=== PATIENT | male | born 1990 | race Caucasian/White ===

== ENCOUNTER 2016-11-10 10:10 | Emergency (ER) | payer OTHER ==
[2016-11-10 10:28] VITALS: BP 144/86
[2016-11-10] MEDS ORDERED: Lidocaine 2% W/EPI 1:100,000* 20 ML MDV ONE (10:49)
[2016-11-10] MEDS ORDERED: Ibuprofen TAB* 800 MG PO ONE (11:18)
[2016-11-10] MEDS ORDERED: Ibuprofen TAB* 400 MG ONE (11:20)
--- NOTE | 2016-11-10 11:33 | UC ---
Bite Injury/Animal HPI - HPI Summary HPI Summary: DOG BITE TO HIS LIPS AND RIGHT CALF ARE SINCE THIS MORNING . + LACERATION ON THE RIGHT LOWER LIP AND A SMALL ABRASION LEFT UPPER LIP , AND ECCHYMOSIS OF THE RIGHT CALF AREA FROM THE BITE - History of Current Complaint Chief Complaint: UCBiteInjury Stated Complaint: DOG BITE,WORK INJURY Time Seen by Provider: 11/10/16 10:22 Pain Intensity: 6 Pain Scale Used: 0-10 Numeric Onset/Duration: Sudden Onset, Lasting Hours - 2 HRS AGO, Still Present Type of Bite: Animal - DOG Character: Abrasion/Laceration - UPPER AND LOWER LIP Aggravating Factor(s): Exertion Alleviating Factor(s): Nothing Associated Signs And Symptoms: Positive: Swelling - RIGHT LOWER LIP , RIGHT CALF. Negative: Fever, Erythema, Drainage, Lymphadenopathy, Numbness/Tingling, Limited ROM Hx of Bite: Provoked by: - BY BEING IN THE PROPERTY Animal Available for Observation: Yes Animal Control Notified: Yes - Allergies/Home Medications Allergies/Adverse Reactions: Allergies Allergy/AdvReac Type Severity Reaction Status Date / Time No Known Allergies Allergy Verified 11/10/16 10:24 PMH/Surg Hx/FS Hx/Imm Hx Previously Healthy: Yes - Surgical History Surgical History: None - Family History Known Family History: Negative: Diabetes - Social History Alcohol Use: Occasionally Substance Use Type: None Smoking Status (MU): Never Smoked Tobacco - Immunization History Most Recent Tetanus Shot: with the last five years Review of Systems Constitutional: Negative Skin: Other - LACERATION LIPS ENT: Negative Respiratory: Negative Cardiovascular: Negative Gastrointestinal: Negative Genitourinary: Negative All Other Systems Reviewed And Are Negative: Yes Physical Exam Triage Information Reviewed: Yes Appearance: Well-Appearing, No Pain Distress, Well-Nourished Vital Signs: Initial Vital Signs Temp 98.5 F 11/10/16 10:18 Pulse 90 11/10/16 10:18 Resp 16 11/10/16 10:18 BP 144/86 11/10/16 10:18 Pulse Ox 100 11/10/16 10:18 Vital Signs Reviewed: Yes Eyes: Positive: Conjunctiva Clear ENT: Positive: Normal ENT inspection, Hearing grossly normal, Pharynx normal Neck exam: Normal Neck: Positive: Supple, Nontender, No Lymphadenopathy Respiratory: Positive: Chest non-tender, Lungs clear, Normal breath sounds Cardiovascular: Positive: RRR, No Murmur, Pulses Normal Abdominal Exam: Normal Abdomen Description: Positive: Nontender, Soft. Negative: Distended, Guarding Bowel Sounds: Positive: Present Musculoskeletal Exam: Normal Musculoskeletal: Positive: Strength Intact, ROM Intact, No Edema Neurological: Positive: Alert, Muscle Tone Normal Psychological Exam: Normal Skin Exam: Other - RIGHT CALF : + DOG BITE, + ECCHYMOSIS, SWELLING AND TENDERNESS Skin: Positive: Other - LACERATION RIGHT LOWER LIP : 1 AND 1/2 CM , DEEP , ACROSS THE amanda border + BLEEDING + SAMLL ABRASITON LEFT UPPER LIP , NO NEED TO REPAIR UC Physical Exam Vital Signs On Initial Exam: Initial Vitals Temp Pulse Resp BP Pulse Ox 98.5 F 90 16 144/86 100 11/10/16 10:18 11/10/16 10:18 11/10/16 10:18 11/10/16 10:18 11/10/16 10:18 Procedures - Laceration/Wound Repair 1 Location: Other - RIGHT LOWER LIP Description: Irregular - INJURY TO amanda border Anesthesia: Local - 4 CC , 2.0%, [place] Length, Depth and Shape: LENGTH: 1 AND 1/2 CM. DEPTH: 3 MM Betadine Prep?: Yes Laceration/Wound Explored: contaminated - DOG BITE , no foreign body removed Closure: Single Layer Debridement: extensive Suture Type: Nylon - 6.0 X 3 Sterile Dressing Applied?: No Bite Injury Course/Dx - Differential Dx/Diagnosis Provider Diagnoses: DOG BITE. LACERATION RIGHT LOWER LIP. ECCHYMOSIS RIGHT CALF Discharge - Discharge Plan Condition: Stable Disposition: HOME Prescriptions: Ibuprofen TAB* [Motrin TAB* 800 MG] 800 mg PO Q8H #15 tab Patient Education Materials: Animal Bite (ED), Care For Your Stitches (ED), Laceration (ED) Referrals: Non Staff,Doctor [Primary Care Provider] - Additional Instructions: FOLLOW UP IN 7 DAYS FOR SUTURE REMOVAL
== END 2016-11-10 11:25 | disposition home or self-care (01) ==
LOC: UCCORT 10:10
DX: S01.511A Laceration without foreign body of lip, initial encounter (principal); S80.11XA Contusion of right lower leg, initial encounter; W54.0XXA Bitten by dog, initial encounter; Y93.9 Activity, unspecified; Y92.009 Unspecified place in unspecified non-institutional (private) residence as the place of occurrence of the external cause; Y99.0 Civilian activity done for income or pay
CPT/HCPCS: 12011; 99202; A9270-GY; G0463